=== PATIENT | male | born 1970 | race American Indian/Alaskan Native ===

== ENCOUNTER 2019-01-13 07:00 | Emergency (ER) | payer OTHER ==
[2019-01-13] MEDS ORDERED: IBUPROFEN PO ONE (10:47)
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
[2019-01-13 12:18] VITALS: BP 138/96
== END 2019-01-13 12:17 | disposition home or self-care (01) ==
LOC: ED 07:00
DX: S16.1XXA Strain of muscle, fascia and tendon at neck level, initial encounter (principal); M54.5 Low back pain; V87.7XXA Person injured in collision between other specified motor vehicles (traffic), initial encounter; Y93.89 Activity, other specified; Y92.488 Other paved roadways as the place of occurrence of the external cause; Y99.8 Other external cause status
CPT/HCPCS: 72040; 72100; 72170; 99283

== ENCOUNTER 2021-11-09 20:26 | Emergency (ER) | payer OTHER, BC ==
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
[2021-11-10 00:22] VITALS: BP 144/94
== END 2021-11-10 00:20 | disposition home or self-care (01) ==
LOC: ED 20:26
DX: M54.9 Dorsalgia, unspecified (principal); V89.2XXA Person injured in unspecified motor-vehicle accident, traffic, initial encounter; Y93.89 Activity, other specified; Y92.89 Other specified places as the place of occurrence of the external cause; Y99.8 Other external cause status
CPT/HCPCS: 72100; 99283